=== PATIENT | female | born 1970 | race Caucasian/White ===

== ENCOUNTER 2016-10-22 21:29 | Emergency (ER) | payer OTHER ==
[~2016-10-22] VITALS: Ht 167.6 cm; Wt 73.5 kg
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
[~2016-10-22 21:29] MED LIST: FLEXERIL10 M1 PO; KEFLEX PO; METFORMIN HCL850 MG PO; MULTI VITAMIN1 EACH PO; NO MEDICATIONS; TYLENOL #3 PO; VOLTAREN75 MG PO; ZOFRANODT SL
[2016-10-22 22:48] LABS: URINE SOURCE CLEAN CATCH
[2016-10-22 22:54] LABS: URINE APPEARANCE CLEAR; URINE BILIRUBIN NEG (NEG); URINE BLOOD NEG (NEG); URINE COLOR YELLOW; URINE GLUCOSE NEG (NEG); URINE KETONE TRACE (NEG); URINE LEUKOCYTE ESTERASE NEG (NEG); URINE NITRATE NEG (NEG); URINE PROTEIN NEG (NEG); URINE SPECIFIC GRAVITY 1.018 (1.003-1.035)
[2016-10-22 22:58] LABS: CULTURE INDICATED? NO
== END 2016-10-23 00:47 | disposition home or self-care (01) ==
LOC: CED 21:29
PROVIDERS: Emergency Medicine
DX: S16.1XXA Strain of muscle, fascia and tendon at neck level, initial encounter (principal); S39.012A Strain of muscle, fascia and tendon of lower back, initial encounter; V43.52XA Car driver injured in collision with other type car in traffic accident, initial encounter; Y92.410 Unspecified street and highway as the place of occurrence of the external cause
CPT/HCPCS: 71020; 72040; 72072; 72100; 72170; 81003; 84703; 99284